=== PATIENT | female | born 1970 | race Caucasian/White ===

== ENCOUNTER → 2016-05-28 | Outpatient (CLI) | payer OTHER ==
--- NOTE | 2016-05-28 16:30 | REPMRS ---
Patient History The patient states she had a clinical breast exam in 04/13.Family history of unknown cancer in maternal grandmother at age 30. Taking hormonal contraceptives for 9 years. Digital Mammo Screening Bilat: May 28, 2016 - Exam #: [id number] Bilateral CC and MLO view(s) were taken. Technologist: [place] Mar Technologist Prior study comparison: May 25, 2015, bilateral digital mammo screening bilat performed at [facility]. May 17, 2014, bilateral digital mammo screening bilat performed at [facility]. May 11, 2013, bilateral bilat screen digital mammo, performed at [facility] ([facility]). FINDINGS: There are scattered fibroglandular densities. There is a moderate amount of residual fibroglandular tissue which is fairly symmetric. There is no interval development of dominant mass, architectural distortion, or clustered microcalcification typical of malignancy. There has been no change in the appearance of the mammogram from the prior studies. ASSESSMENT: BI-RADS/ACR category 1 mammogram. Negative. Recommendation Routine screening mammogram of both breasts in 1 year (for women over age 40). This mammogram was interpreted with the aid of an FDA-approved computer-aided dectection system. Electronically Signed By: Augusto Becerra MD 05/28/16 0652
== END ==
LOC: M RAD 16:07
PROVIDERS: ATTEND Nurse Practitioner Women's Health
DX: Z12.31 Encounter for screening mammogram for malignant neoplasm of breast (principal)

== ENCOUNTER → 2017-05-31 | Outpatient (CLI) | payer OTHER | LOC: M RAD 14:07 | DX: Z12.31 Encounter for screening mammogram for malignant neoplasm of breast (principal) | CPT/HCPCS: 77067 ==

== ENCOUNTER → 2018-06-24 | Outpatient (CLI) | payer OTHER ==
--- NOTE | 2018-06-25 08:56 | REPMRS ---
Patient History The patient states she had a clinical breast exam in 2018. Family history of unknown cancer at age 30 in maternal grandmother. Taking hormonal contraceptives for 9 years. Digital Mammo Screening Bilat: June 24, 2018 - Exam #: [id number] Bilateral CC and MLO view(s) were taken. Technologist: Mayra Holm, Technologist Prior study comparison: May 31, 2017, bilateral digital mammo screening bilat performed at [facility]. May 28, 2016, bilateral digital mammo screening bilat performed at [facility]. May 25, 2015, bilateral digital mammo screening bilat performed at [facility]. FINDINGS: The breast tissue is heterogeneously dense. This may lower the sensitivity of mammography. There is a moderate amount of heterogeneously dense fibroglandular tissue which is fairly symmetric. There is no interval development of dominant mass, architectural distortion, or clustered microcalcification typical of malignancy. There has been no change in the appearance of the mammogram from the prior studies. 3-D tomosynthesis shows no additional findings. Assessment: BI-RADS/ACR category 1 mammogram. Negative Mammogram. Recommendation Routine screening mammogram of both breasts in 1 year (for women over age 40). This patient's Lifetime Breast Cancer RIsk is estimated at 12.4 %. This mammogram was interpreted with the aid of an FDA-approved computer-aided dectection system. Electronically Signed By: Augusto Becerra MD 06/25/18 0856
== END ==
LOC: M RAD 15:38
PROVIDERS: ATTEND Obstetrics & Gynecology
DX: Z12.31 Encounter for screening mammogram for malignant neoplasm of breast (principal)

== ENCOUNTER → 2019-07-14 | Outpatient (CLI) | payer OTHER ==
--- NOTE | 2019-07-14 17:23 | REP ---
BILATERAL SCREENING MAMMOGRAM WITH 3D TOMOSYNTHESIS: No family history of breast cancer. Trevon Palacios lifetime risk of breast cancer 12.2%. COMPARISON: 06/24/2018 as well as other prior exams. Moderate heterogeneous fibroglandular tissue is seen bilaterally. There appear to be tiny calcifications posteriorly in the upper outer quadrant of the right breast for which magnification views are recommended. Small stable nodular opacity is seen in the lateral left breast. No new mass is seen. No architectural distortion is seen. IMPRESSION: ACR 0 incomplete. There appear to be new tiny calcifications posteriorly in the upper outer quadrant of the right breast. Recommend magnification views to further evaluate. BIRADS 0: BI-RADS/ACR category 0 mammogram, Incomplete: Need additional imaging evaluation and/or prior mammograms for comparison. This mammogram was interpreted with the aid of an FDA-approved computer-aided detection system. The patient states she/he had a clinical breast exam in May 2019. The patient letter being requested is M0.
== END ==
LOC: M WHC 15:19
PROVIDERS: ATTEND Obstetrics & Gynecology
DX: Z12.31 Encounter for screening mammogram for malignant neoplasm of breast (principal); R92.8 Other abnormal and inconclusive findings on diagnostic imaging of breast

== ENCOUNTER → 2019-07-17 | Outpatient (CLI) | payer OTHER ==
--- NOTE | 2019-07-17 10:45 | REP ---
DIAGNOSTIC MAMMOGRAM RIGHT BREAST: Magnification views right breast performed and correlated with the recent mammogram of 07/14/2019. These magnification views confirm the presence of new clustered pleomorphic microcalcifications posteriorly in the upper outer quadrant of the right breast. Stereotactic biopsy is recommended. IMPRESSION: ACR 4 suspicious. Cluster of pleomorphic microcalcifications in the upper outer quadrant of the right breast posteriorly. Recommend stereotactic biopsy. ACR 4 suspicious. Patient letter being requested M4.
== END ==
LOC: M WHC 09:36
PROVIDERS: ATTEND Obstetrics & Gynecology
DX: Z12.31 Encounter for screening mammogram for malignant neoplasm of breast (principal); N63.11 Unspecified lump in the right breast, upper outer quadrant

== ENCOUNTER → 2019-07-27 | Outpatient (CLI) | payer OTHER ==
--- NOTE | 2019-07-27 11:32 | REP ---
FOCUSED LEFT AXILLARY SONOGRAPHY: HISTORY: Left axillary lymph node palpable. FINDINGS: Left axillary sonography demonstrates multiple normal-appearing lymph nodes in the left axilla. The largest of these measures 1.5 x 0.7 x 0.6 cm. These lymph nodes have a normal appearing cortical margin and echogenic fatty hilar architecture. No sonographic evidence of adenopathy or mass. IMPRESSION: BIRADS category 2 benign findings. Clinical followup is advised.
[2019-07-27 12:26] VITALS: BP 110/70
--- NOTE | 2019-07-27 13:44 | REP ---
SPECIMEN RADIOGRAPHY RIGHT BREAST: THREE VIEWS. HISTORY: Stereotactic needle biopsy for microcalcifications. Comparison mammography is from July 17, 2019. FINDINGS: A series of three specimen radiographs demonstrate several microcalcifications in one or two of the removed specimens.
--- NOTE | 2019-07-27 17:16 | REP ---
Digital diagnostic unilateral right breast mammography with CAD: Two views. History: Marker clip placement views. Comparison mammography July 17, 2019. Microcalcific grouping upper outer quadrant. Findings: Craniocaudal and MLO as well as true mediolateral views were obtained. Marker clip is seen in good position in the upper outer quadrant adjacent to one or two remaining microcalcifications. Impression: Marker clip in good position.
--- NOTE | 2019-07-27 21:10 | ROOPDOC ---
[facility] Report Of Operation Report of Operation DATE OF PROCEDURE: 07/27/19 PREPROCEDURE DIAGNOSES: Right breast calcifications POSTPROCEDURE DIAGNOSES: Right breast calcifications PROCEDURE: Right breast stereotactic biopsy of suspicious calcifications SURGEON: Charu Mireles INSTRUCTION DEAN: ANESTHESIA: Local ESTIMATED BLOOD LOSS: Approximately 5 mL. COMPLICATIONS: None REMARKS: Postbiopsy mammogram shows clip in expected position. The remaining calcifications are still seen on the mammogram. DESCRIPTION OF PROCEDURE: Lidocaine 1% LOT [id number] Expiration 05/2020 Sodium Bicarbonate 8.4% LOT [id number] Expiration 12/2020 Hydromark clip LOT [id number] Expiration 10/2020 REF 4009-07-05-T1 titanium shaped 1 (closed Spring) Bx device: Stereotactic Mammotome Revolve Dual Vacuum- assisted Biopsy System 10 G LOT [id number] Expiration 04/2022 Informed consent was obtained in the preop area. The most common risk and possible complications including bleeding, hematoma, bruising, infection, injury to surrounding structures were explained to the patient and she expressed understanding. Patient was taken to the procedure room and placed prone on the [employer] [facility] Prone Breast Biopsy table with the right breast hanging through the table aperture. Right breast was placed into Medio-Lateral compression and [employer] [place] images were taken. Suspicious calcifications were identified on the [place] images and target was set. At this time, since we were able to confirm visibility of the suspicious calcifications and patient tolerated prone positioning allowing to proceed with the biopsy, appropriate time out was done stating patients name, date of , and the procedure to be performed. The right breast in ML compression was prepped in the usual fashion. Plain Lidocaine 1% and 8.4% sodium bicarbonate 10:1 mix was used to numb the skin, the biopsy site and tissues along the anticipated biopsy tract. Small skin incision was made with blade number 11. Mammotome 10 G stereotactic breast biopsy device was inserted through the incision and advanced to the previously set coordinates marking the target lesion. Pre-fire imaging was taken to assure appropriate positioning. At this time, Mammotome 10 G breast biopsy device was fired and vacuum assisted biopsies were collected circumferentially. The biopsy samples were investigated with [employer] system and a few small calcs were observed. Biopsy samples were then placed in the formaldehyde, marked with patients name and right breast biopsy site, and sent to pathology for evaluation. Hydromark clip was placed into the Mammotome biopsy device channel and deployed. Post-deployment imaging was done to assure appropriate clip deployment. Clip was noted in the right breast. At this point, paddle ML compression of the right breast was released and manual pressure was held to decrease harmonic effect and to assure hemostasis. No bleeding was noted upon removal of the pressure. Patient was slowly repositioned and placed into sitting position, and then assisted off the table. Post-biopsy mammogram of the right breast was obtained and showed clip in expected position. During mammogram patient felt dizzy and was placed on the bed with elevated legs. Her BP and HR were monitored. She recovered well within a few minutes and was taken to the recovery room where postprocedural dressing was placed. Discharge instructions were discussed with the patient and she expressed understanding. CHARU MIRELES DO Jul 27, 2019 21:10
== END ==
LOC: M WHC 08:31
PROVIDERS: ATTEND Surgery
DX: R92.1 Mammographic calcification found on diagnostic imaging of breast (principal)

== ENCOUNTER → 2020-01-19 | Outpatient (CLI) | payer OTHER ==
--- NOTE | 2020-01-29 08:30 | REP ---
DIAGNOSTIC MAMMOGRAM RIGHT BREAST WITH 3D TOMOSYNTHESIS HISTORY: Benign biopsy of microcalcifications upper outer quadrant right breast performed 07/27/2019. Comparison mammogram 07/27/2019 as well as multiple other prior exams. Lifetime risk of breast cancer 12.2%. No family history of breast cancer. FINDINGS: MLO and CC views of the right breast were performed in addition to a right ML view. 3D tomosynthesis sequences were performed in the MLO and CC projections. Moderate breast parenchyma is again noted throughout the right breast, unchanged. Volpara breast density is C. There is no new mass and no new clustered microcalcifications. At the site of the negative biopsy in the posterior upper outer quadrant of the right breast, the biopsy clip is again noted. There are approximately three residual tiny calcifications at that location. IMPRESSION: ACR 2 benign. Approximately three tiny residual microcalcifications are noted at the biopsy site in the posterior upper outer quadrant of the right breast, status post stereotactic biopsy of microcalcifications at that location on 07/27/2019. No new findings. Recommend follow up bilateral mammography June 2020. This mammogram was interpreted with the aid of an FDA approved computer aided detection system. Last clinical breast exam was June 2019. Send letter 1. APOLINAR
== END ==
LOC: M WHC 15:00
PROVIDERS: ATTEND Surgery
DX: N60.11 Diffuse cystic mastopathy of right breast (principal); Z86.018 Personal history of other benign neoplasm
CPT/HCPCS: 77065; G0279

== ENCOUNTER → 2020-03-22 | Outpatient (CLI) | payer OTHER ==
[~2020-03-22] MED LIST: PROHANCE 279.3MG/ML 5ML VIAL As Ordered ONE
--- NOTE | 2020-03-22 18:28 | REP ---
INDICATION: HIGH RISK BREAST CA. COMPARISON: Mammogram 07/14/2019 and 01/19/2020. TECHNIQUE: Three [place] MRI imaging was performed with a dedicated breast coil. Axial, coronal, and sagittal T1 and T2 weighted scans were obtained with and without fat saturation in the usual fashion. The study includes dynamically acquired post gadolinium-enhanced imaging with image subtraction. Maximum intensity projection and multi planar reformation imaging is included as well. This study is interpreted with the aid of DiJiPOPD, an FDA approved computer aided detection (CAD) software program, on a dedicated breast MRI workstation. The gadolinium enhancement dose is 10 mL of intravenous ProHance. FINDINGS: There is moderate fibroglandular tissue bilaterally. There is mild to moderate background parenchymal enhancement bilaterally. Tiny amount of fluid is seen at the prior biopsy site in the posterior right upper outer quadrant. There couple of subcentimeter cysts in the inferior left breast. There is no axillary adenopathy bilaterally. In the posterolateral left breast at about the level of the nipple there is an oval smoothly marginated nodule which is hyperintense on T2 and demonstrates enhancement. The appearance is most consistent with a small intramammary lymph node. It measures 6 x 4 mm. There is no suspicious enhancing mass or morphologic abnormality. IMPRESSION: BI-RADS category 2 benign bilateral breast MRI. Couple small cysts and an intramammary lymph node seen in the inferior left breast. There is no suspicious enhancing mass or morphologic abnormality. <Electronically signed by Elder Bishop > 03/22/20 [id number]
== END ==
LOC: M RAD 15:36
PROVIDERS: ATTEND Surgery
DX: Z12.31 Encounter for screening mammogram for malignant neoplasm of breast (principal); N60.02 Solitary cyst of left breast
CPT/HCPCS: A9576; C8908

== ENCOUNTER → 2020-07-15 | Outpatient (CLI) | payer OTHER ==
--- NOTE | 2020-07-15 16:01 | REPMRS ---
Patient History The patient states she had a clinical breast exam in 06/2020. Family history of unknown cancer at age 30 in maternal grandmother, breast cancer at age 55 in maternal aunt, breast cancer at age 55 in paternal cousin. Benign stereotatic loc for ea lesion. of the right breast, July 27, 2019. Took hormonal contraceptives for 9 years. Digital Woman Screen Mammo: July 15, 2020 - Exam #: [id number] Bilateral CC and MLO view(s) were taken. Technologist: Avis Plasencia, Technologist Prior study comparison: January 19, 2020, bilateral diagnostic [place] [facility] July 27, 2019, right breast diagnostic unilateral mammo, performed at [facility]. July 14, 2019, bilateral digital woman screen mammo performed at [facility]. June 24, 2018, bilateral digital mammo screening bilat, performed at [facility]. May 31, 2017, bilateral digital mammo screening bilat, performed at [facility]. FINDINGS: The breast tissue is heterogeneously dense. This may lower the sensitivity of mammography. The Volpara volumetric breast density category is: C. There is a needle biopsy marker clip in the right breast. There is a moderate amount of heterogeneously dense fibroglandular tissue which is fairly symmetric. There is no interval development of dominant mass, architectural distortion, or grouped microcalcification typical of malignancy. There has been no change in the appearance of the mammogram from the prior studies. 3-D tomosynthesis shows no additional findings. Assessment: BI-RADS/ACR category 2 mammogram. Benign Findings. Recommendation Routine screening mammogram of both breasts in 1 year (for women over age 40). This patient's [facility] Lifetime Breast Cancer RIsk is estimated at 16.8 %. This mammogram was interpreted with the aid of an FDA-approved computer-aided dectection system. Electronically Signed By: Augusto Becerra MD 07/15/20 3462
== END ==
LOC: M WHC 15:28
PROVIDERS: ATTEND Surgery
DX: Z12.31 Encounter for screening mammogram for malignant neoplasm of breast (principal); N64.89 Other specified disorders of breast; Z92.0 Personal history of contraception; Z80.3 Family history of malignant neoplasm of breast

== ENCOUNTER → 2021-03-28 | Outpatient (CLI) | payer OTHER ==
[~2021-03-28] MED LIST changes: +PROHANCE 279.3MG/ML 15ML VIAL As Ordered ONE; -PROHANCE 279.3MG/ML 5ML VIAL As Ordered ONE
== END ==
LOC: M RAD 10:45
PROVIDERS: ATTEND Surgery
DX: N60.01 Solitary cyst of right breast (principal); N60.02 Solitary cyst of left breast; Z91.89 Other specified personal risk factors, not elsewhere classified
CPT/HCPCS: A9576; C8908

== ENCOUNTER → 2021-09-08 | Outpatient (CLI) | payer OTHER | LOC: M WHC 07:44 | PROVIDERS: ATTEND Obstetrics & Gynecology | DX: R92.2 Inconclusive mammogram (principal) | CPT/HCPCS: 76642; 77065; G0279 ==

== ENCOUNTER → 2022-03-14 | Outpatient (CLI) | payer OTHER | LOC: M WHC 15:24 | PROVIDERS: ATTEND Obstetrics & Gynecology | DX: R92.8 Other abnormal and inconclusive findings on diagnostic imaging of breast (principal); N60.02 Solitary cyst of left breast ==

== ENCOUNTER → 2022-04-19 | Outpatient (CLI) | payer OTHER ==
[~2022-04-19] MED LIST changes: -PROHANCE 279.3MG/ML 15ML VIAL As Ordered ONE; +PROHANCE 279.3MG/ML 15ML VIAL ONE
== END ==
LOC: M PLAIMG 14:45
PROVIDERS: ATTEND Nurse Practitioner Women's Health
DX: Z91.89 Other specified personal risk factors, not elsewhere classified (principal); R92.8 Other abnormal and inconclusive findings on diagnostic imaging of breast
CPT/HCPCS: A9576; C8908

== ENCOUNTER → 2022-09-10 | Outpatient (REF) | payer OTHER | LOC: M SFHCWAGY 18:18 | PROVIDERS: ATTEND Nurse Practitioner Family | DX: Z12.4 Encounter for screening for malignant neoplasm of cervix (principal) | CPT/HCPCS: 87624; G0123 ==

== ENCOUNTER → 2022-09-25 | Outpatient (CLI) | payer OTHER | LOC: M WHC 09-10 10:13 | PROVIDERS: ATTEND Nurse Practitioner Women's Health | DX: R92.2 Inconclusive mammogram (principal); Z91.89 Other specified personal risk factors, not elsewhere classified; Z80.3 Family history of malignant neoplasm of breast ==

== ENCOUNTER → 2023-04-19 | Outpatient (CLI) | payer OTHER ==
[~2023-04-19] MED LIST changes: -PROHANCE 279.3MG/ML 15ML VIAL ONE; +PROHANCE 279.3MG/ML 5ML VIAL ONE
== END ==
LOC: M PLAIMG 14:06
PROVIDERS: ATTEND Nurse Practitioner Women's Health
DX: R92.2 Inconclusive mammogram (principal); Z91.89 Other specified personal risk factors, not elsewhere classified; Z80.3 Family history of malignant neoplasm of breast
CPT/HCPCS: A9576; C8908

== ENCOUNTER → 2023-10-02 | Outpatient (CLI) | payer OTHER | LOC: M WHC 15:30 | PROVIDERS: ATTEND Nurse Practitioner Women's Health | DX: Z12.31 Encounter for screening mammogram for malignant neoplasm of breast (principal) ==

== ENCOUNTER → 2025-01-06 | Outpatient (REF) | payer OTHER ==
[~2025-01-06] MED LIST changes: +LOSA25TA13 PO; -PROHANCE 279.3MG/ML 5ML VIAL ONE
[2025-01-08 13:18] LABS: HPV APTIMA Not Detected (Not Detected)
== END ==
LOC: M SFHCWAGY 13:26
PROVIDERS: ATTEND Physician Assistant
DX: Z12.4 Encounter for screening for malignant neoplasm of cervix (principal)
CPT/HCPCS: 87624; G0123

== ENCOUNTER → 2025-01-06 | Outpatient (CLI) | payer OTHER | LOC: M WHC 10:26 | PROVIDERS: ATTEND Physician Assistant | DX: Z12.31 Encounter for screening mammogram for malignant neoplasm of breast (principal) ==